=== PATIENT | female | born 1985 | race Caucasian/White ===

== ENCOUNTER 2016-12-30 10:42 | Day surgery (SDC) | payer OTHER ==
[~2016-12-30] VITALS: Ht 172.7 cm; Wt 65.0 kg
[~2016-12-30 10:42] MED LIST: Lactated Ringer's 1,000 ML IV ONE
[2016-12-30] MEDS ORDERED: fentaNYL-PF 50 mCg/mL 2 mL Inj ONE (10:43)
[2016-12-30] MEDS ORDERED: Propofol 10,000 mCg/mL 20 mL Inj ONE (10:43)
[2016-12-30 11:18] VITALS: BP 117/71; PULSE 69; RESP 16; O2SAT 100
--- NOTE | 2016-12-30 12:14 | PCM.ENDEGD ---
EGD Date of Service: Dec 30, 2016 Physician Hero Kitchen MD Pre Procedure Diagnosis: Abdominal pain Post Procedure Dx & Findings: Normal upper GI Procedure Esophagogastroduodenoscopy PROCEDURE IN DETAIL: After proper sedation, Olympus video endoscope was inserted into patient's mouth and esophagus was successfully intubated. Scope introduced esophagus. Esophagus showed normal shiny whitish mucosa consistent with squamous cell component. Z line was intact at 40 cm from the incisors. Scope further advanced to the stomach. Stomach showed normal shiny mucosa with normal appearing rugae folds without any ulcer mass erosion. Cardia fundus body antrum pylorus were all visualized. Retroflexion was done. Stomach was easily inflated and deflatable using air. Scope further advanced to the distal duodenum. Duodenum revealed normal villous structures with normal appearing folds without any mass ulcer erosion. 5 biopsies are done to rule out celiac disease. Impression Normal upper GI Presedation Assessment Risks and Benefits Informed consent was obtained from the patient after all risks and benefits including but not limited to drug reaction, infection, pain, bleeding, perforation, as well as alternatives were discussed. Patient monitoring Continuous pulse oximetry, cardiac monitoring, blood pressure monitoring, IV access, and oxygen at 2L per nasal cannula. Complications There were no periprocedural complications identified. Post Procedure Plan Post Procedure Recommendations 1. Restrict activities today. 2. Resume normal activities in the morning. 3. Resume medications. 4. GERD behavioral modification: - Avoid fatty, acidic, spicy, large meals - Do not lie down after meals - Do not eat or drink anything for at least 2 1/2 hours before going to bed at night - Discontinue tobacco and alcohol - Decrease or avoid caffeine - Avoid chocolate and mints - Decrease weight - Avoid aspirin and non steroidal anti-inflammatory agents (NSAID) such as Aleve, Advil, Mobic, Naproxen, Ibuprofen, etc 5. Add proton pump inhibitor. Take 30 minutes before 1st meal of the day. 6. Patient informed of normal post procedure side effects as bloating, drowsiness, blood streaking in the stool 7. If gastric biopsy reveal H.pylori, continue with appropriate treatment 8. If small bowel biopsy reveals celiac, continue with appropriate treatment 9. Please don't hesitate to call me with any questions Hero Kitchen MD Dec 30, 2016 12:14
[2016-12-30 12:16] VITALS: BP 88/63; PULSE 64; RESP 16; O2SAT 100
--- NOTE | 2016-12-30 12:16 | PCM.ENDCOL ---
Colonoscopy Date of Service: Dec 30, 2016 Physician Hero Kitchen MD Pre Procedure Diagnosis: Abdominal pain and constipation and diarrhea Post Procedure Dx & Findings: Polyp and hemorrhoids Procedure Colonoscopy PROCEDURE IN DETAIL: Prep adequate Withdrawal time 11 minutes After unremarkable rectal examination the Olympus video colonoscope was inserted patient's anal canal and was advanced to cecum. Landmarks were identified including the ileocecal valve and appendiceal orifice. Scope further advanced into the terminal ileum. Advanced 10 cm. Visualized terminal ileum show normal villous structures without any ulcer mass or lesions. Scope was withdrawn systematically. Visualized colonic mucosa showed healthy shiny mucosa with normal healthy-appearing vasculature. In the ascending colon there was a 3 mm polyp which was removed completely cold snare. In the rectum retroflexion was done which showed hemorrhoids. Anal canal was inspected carefully on the way out and hemorrhoids noted. Impression Polyp 1 status post complete removal Normal terminal ileum No cause of pain Hemorrhoids Recommendation Repeat colonoscopy 3 years Presedation Assessment Risks and Benefits Informed consent was obtained from the patient after all risks and benefits including but not limited to drug reaction, infection, pain, bleeding, perforation, as well as alternatives were discussed. Patient monitoring Continuous pulse oximetry, cardiac monitoring, blood pressure monitoring, IV access, and oxygen at 2L per nasal cannula. Complications There were no periprocedural complications identified. Post Procedure Plan Post Procedure Recommendations 1. Restrict activities today. 2. Resume normal activities in the morning. 3. Resume medications. 4. Patient informed of normal post procedure side effects as bloating, drowsiness, blood streaking in the stool. 5. average risk CRCS. If colon polyps come back as: -Hyperplastic- can repeat colonoscopy in 10 years -Tubular adenoma- repeat colonoscopy in 5 years -Tubulovillous/villous adenoma- repeat colonoscopy in 3 years -If any dysplasia- return to clinic as soon as possible 6. Please don't hesitate to call me with any questions. Hero Kitchen MD Dec 30, 2016 12:16
[2016-12-30 12:26] VITALS: BP 104/72; PULSE 60; RESP 16; O2SAT 100
[2016-12-30 12:36] VITALS: BP 105/71; PULSE 55; RESP 16; O2SAT 100
--- NOTE | 2016-12-30 18:00 | PCM.HPANE ---
Patient Data Date of Service: Dec 30, 2016 (0700) Surgeon Admitting Provider: Attending Provider:Hero Kitchen MD Primary Care Physician:Jsaiel Aguiar DO Other Provider:Amaris Osman Anesthesia Reason for Visit Abdominal Pain Of Unknown Cause Ht/WT & BMI Height (Feet): 5 Height (Inches): 8 Weight (Kilograms): 65 Body Mass Index 21.00 Allergies Coded Allergies: tea tree (Verified Allergy, Unknown, 12/30/16) Past Anesthesia History Anesthesia History: Denies:: Anesthesia Reactions, Fam Anesthesia Reaction, Fam Malignant Hypertherm, Malignant Hyperthermia Diabetes History Hx Diabetes?: No MRSA MRSA: No Medications No Active Prescriptions or Reported Meds History History of ENT Problems?: No HEENT History: Denies:: Abnormal Airway Cataracts Difficult Intubation Dysphagia Glaucoma Hearing Problem Sinus Problem TMJ Denture Type: None Teeth Condition: Within Normal Limits Hx of Heart Problems?: No Cardiovascular History: Denies:: AICD Abdominal Aortic Aneurism Atrial Fibrillation Cardiac Surgery Chest Pain Congestive Heart Failure Coronary Artery Disease Edema Heart Murmur Hypertension Irregular Heartbeat Pacemaker Peripheral Vascular Rheumatic Fever Thrombophlebitis Valvular Heart Disease Hx of Respiratory Problem?: No Respiratory History: Denies:: Asthma COPD Chest Surgery Cough Dyspnea Emphysema Hemoptysis Oxygen Administration Pneumonia Pulmonary Embolism Tuberculosis Use of C-PAP Machine Use of Inhalers / NEBS Hx Neurologic Problems?: No Neurological History: Denies:: CVA Hx of GI Problems?: No Hx of Problems?: No Female Hx: Denies:: Currently Hx Musculoskeletal Problems?: No Hx Surgeries?: Yes (TONSILS) Hx Any Other Health Problems?: No Hx Diabetes: No Hx Alcohol Use: Yes (DAILY, 2 DRINKS PER DAY) Stop/Bang Treated for Sleep Apnea?: No Do You Have a CPAP Machine?: No S-Snoring: Do You Snore Loudly: No T-Tired: feel tired, fatigued: No O-Obsered: Observed not breath: No P-Blood Pressure: treated: No B- Body Mass Index > 35 kg/m2: No A- Age over 50: No N- Neck Large Circumference: No G- Gender Male: No DOROTHY Total Score: 0 Risk Assessment Category Category 1A: Patient has history of documented sleep apnea, and HAS NOT received any narcotic, sedative or anesthesia administration during this stay. Category 1B: Patient has history of documented sleep apnea, and HAS received any narcotic , sedative or anesthesia administration during this stay Category 2: Patient has SUSPECTED Obstructive Sleep Apnea, and HAS received any narcotic , sedative or anesthesia administration during this stay. Category 3: Patient has SUSPECTED Obstructive Sleep Apnea and HAS NOT received narcotic, sedative or anesthesia administration during this stay. Category 4: Outpatient in Procedural Areas with known sleep apnea or who screen positive for High Risk via the STOP/BANG questionnaire. Exam Exam Vital Signs Vital Signs Date Time Temp Pulse Resp B/P Pulse Ox O2 Delivery O2 Flow Rate FiO2 12/30/16 12:36 55 16 105/71 100 Room Air 12/30/16 12:26 60 16 104/72 100 Room Air 12/30/16 12:16 64 16 88/63 100 Room Air 12/30/16 11:18 36.7 69 16 117/71 100 Room Air General Appearance: Alert, Oriented X3, Cooperative, No Acute Distress HEENT/AIRWAY: MP 2 Lungs: Clear to Auscultation Heart: Exam Unremarkable Meds/Labs/Diagnostics Admission Meds Current Medications Lactated Ringer's (Lr) 1,000 ml @ 10 mls/hr Q24H ONCE IV Last administered on 12/30/16t 11:53; Start 12/30/16 at 06:00; Stop 12/31/16 at 05:59 Plan Impression Patient chart reviewed, patient interviewed and anesthestic plan with risks, benefits, and alternatives discussed, and informed consent obtained. ASA Physical Status: ASA2 Mod Systemic Disease Anesthetic Plan: MAC Bene/Risks/Altern/Consents: Yes HP Complete Prior to Induction: Yes Umang Stanton MD Dec 30, 2016 18:00
--- NOTE | 2016-12-31 15:37 | PATH ---
SURGICAL PATHOLOGY Attending Physician:Hero Kitchen M.D. CASE STATUS: Signed Out PATIENT NAME: ISSAC EM PID: [id number] : 1985 DATE COLLECTED:12/30/2016 22:49 SPECIMEN: 1: Duodenum, Biopsy 2: Colon, Polyp CLINICAL HISTORY: 1). DUODENAL BIOPSY 2). ASCENDING COLON POLYP FINAL DIAGNOSIS: 1.DUODENUM, BIOPSY: DUODENAL MUCOSA WITH NO DIAGNOSTIC ABNORMALITY. Negative for active inflammation, features of sprue, dysplasia, and malignancy. 2.ASCENDING COLON POLYP, BIOPSY: TUBULAR ADENOMA. ICD10 D12.2 GROSS DESCRIPTION: Received two formalin-filled containers. 1. Received in formalin, labeled with the patient' s name and "duodenum", are five fragments of rojas, soft tissue ranging from 0.1 x 0.1 x 0.1 cm to 0.2 x 0.2 x 0.1 cm. The fragments are totally submitted in cassette 1A. 2. Received in formalin, labeled with the patient' s name and "ascending colon polyp", is one fragment of rojas, soft tissue measuring 0.3 x 0.2 x 0.2 cm. The fragment is totally submitted in cassette 2A. [id number] MICRO DESCRIPTION: See diagnosis. ICD-9 CODES: CPT CODES: 1: 73015 2: 64314 Electronically Signed Out Bishnu Alvarez MD, Ph.D. [facility] [address], [place] [address] Technical component performed at [facility], [facility] [address], [place], [address]
== END 2016-12-30 23:59 | disposition home or self-care (01) ==
LOC: END 10:42
PROVIDERS: ATTEND Internal Medicine
DX: D12.2 Benign neoplasm of ascending colon (principal); K64.8 Other hemorrhoids; K58.9 Irritable bowel syndrome, unspecified; R10.9 Unspecified abdominal pain; K59.00 Constipation, unspecified
CPT/HCPCS: 43239; 45385; 88305; J2250; J3010; J7120